=== PATIENT | male | born 1945 | race African-American/Black ===

== ENCOUNTER 2023-01-25 21:56 | Inpatient (IN) | payer MEDICARE, OTHER ==
[~2023-01-25] VITALS: Ht 188 cm; Wt 95.7 kg
[2023-01-25] MEDS ORDERED: MORPHINE SULFATE 4 MG/ML CPJ (NOT FOR IM USE) IV ONE (22:45)
[2023-01-25 23:29] LABS: BASOPHILS % 0.6 % (0.0-2.0); EOSINOPHILS % 2.1 % (0.0-5.0); HEMATOCRIT. 38.8 % (42.0-52.0); HEMOGLOBIN. 13.2 g/dL (14.0-18.0); LYMPHOCYTES % 24.9 % (20.0-50.0); MEAN CORPUSCULAR HEMOGLOBIN 33.4 pg (28.0-32.0); MEAN CORPUSCULAR VOLUME 97.7 fL (80.0-94.0); MEAN PLATELET VOLUME 9.6 fl (7.4-10.4); MONOCYTES % 6.2 % (2.0-8.0); NEUTROPHILS % 66.2 % (40.0-76.0); PLATELET 147 x1000/uL (130-400); RED BLOOD CELL COUNT 3.97 mill/uL (4.7-6.1); RED CELL DISTRIBUTION WIDTH 13.2 % (11.6-14.6)
[2023-01-25 23:32] LABS: CHLORIDE 105 mEq/L (98-107)
[2023-01-25 23:36] LABS: INR 1.1; PROTHROMBIN TIME 11.7 sec (9.6-11.0)
[2023-01-26 01:39] LABS: CLARITY URINE TURBID (CLEAR); COLOR URINE BLOODY (YELLOW); SPECIFIC GRAVITY URINE 1.015 (1.005-1.030)
[2023-01-26 01:40] LABS: KETONES URINE TRACE (NEGATIVE); NITRITE URINE NEGATIVE (NEGATIVE); OCCULT BLOOD URINE 2+ (NEGATIVE); PH URINE 6.5 (4.5-8.0); PROTEIN URINE 4+ (NEGATIVE); UROBILINOGEN URINE 0.2 E.U./dL (0.2-1.0)
[2023-01-26 01:41] LABS: LEUKOCYTE ESTERASE URINE TRACE (NEGATIVE)
[2023-01-26] MEDS ORDERED: MORPHINE SULFATE 4 MG/ML CPJ (NOT FOR IM USE) IV ONE (02:30)
[2023-01-26] MEDS ORDERED: IOHEXOL-300 100 ML BOTTLE ONE (03:37)
[2023-01-26 10:38] VITALS: BP 135/82
[2023-01-26 12:22] VITALS: BP 135/90
[2023-01-26] MEDS ORDERED: ACETAMINOPHEN 650MG/20.3ML UDC GT PRN (15:30)
[2023-01-26] MEDS ORDERED: HYDROCODONE/ACETAMINOPHEN 5/325MG TABLET PO PRN ×2 (15:30)
[2023-01-26] MEDS ORDERED: ALBUTEROL (0.083%) 2.5MG/3ML NEB HHN PRN (15:30)
[2023-01-26] MEDS ORDERED: CLONIDINE 0.1MG TABLET PO PRN (15:30)
[2023-01-26] MEDS ORDERED: NALOXONE HCL 0.4MG/ML VIAL IV PRN (15:30)
[2023-01-26] MEDS ORDERED: DOCUSATE SODIUM 100MG CAPSULE PO PRN (15:30)
[2023-01-26] MEDS ORDERED: ONDANSETRON HCL 4MG/2ML INJ IV PRN (15:30)
[2023-01-26] MEDS ORDERED: CEFTRIAXONE 1GM PREMIX 50 ML IV SCH (15:30)
[2023-01-26] MEDS ORDERED: IPRATROPIUM/ALBUTEROL 0.5-3(2.5)MG/3ML NEB HHN PRN (15:30)
[2023-01-26] MEDS ORDERED: IPRATROPIUM BROMIDE (0.02%) 0.5MG/2.5ML NEB HHN PRN (15:30)
[2023-01-26 16:00] VITALS: BP 130/76
[2023-01-26] MEDS ORDERED: LEVOFLOXACIN 750MG PREMIX 150 ML IV SCH (17:30)
[2023-01-26 18:42] LABS: CHLORIDE 105 mEq/L (98-107)
[2023-01-26 20:00] VITALS: BP 124/72
[2023-01-27] VITALS: BP 139/81
[2023-01-27 04:00] VITALS: BP 136/80
[2023-01-27 07:43] LABS: BASOPHILS % 0.8 % (0.0-2.0); EOSINOPHILS % 2.4 % (0.0-5.0); HEMATOCRIT. 34.5 % (42.0-52.0); HEMOGLOBIN. 11.8 g/dL (14.0-18.0); LYMPHOCYTES % 24.4 % (20.0-50.0); MEAN CORPUSCULAR HEMOGLOBIN 33.3 pg (28.0-32.0); MEAN PLATELET VOLUME 9.7 fl (7.4-10.4); MONOCYTES % 10.2 % (2.0-8.0); NEUTROPHILS % 62.2 % (40.0-76.0); PLATELET 133 x1000/uL (130-400); RED BLOOD CELL COUNT 3.55 mill/uL (4.7-6.1); RED CELL DISTRIBUTION WIDTH 13.1 % (11.6-14.6)
[2023-01-27 08:00] VITALS: BP 116/70
[2023-01-27 08:43] LABS: CHLORIDE 105 mEq/L (98-107)
[2023-01-27 12:00] VITALS: BP 119/54
[2023-01-27] MEDS ORDERED: LEVO-65 MT (12:01)
[2023-01-27 13:51] VITALS: BP 133/90
== END 2023-01-27 15:27 | disposition home or self-care (01) | DRG 696 ==
LOC: ER 21:56 → 6EST 01-26 02:46 → EDBEDREQ 01-26 03:14 → EDBEDREQTM 01-26 03:14 → ENRESERV 01-26 07:48
PROVIDERS: ADMIT Internal Medicine; ATTEND Internal Medicine
DX: R31.9 Hematuria, unspecified (principal); E78.00 Pure hypercholesterolemia, unspecified; I10 Essential (primary) hypertension; E78.5 Hyperlipidemia, unspecified; Z87.19 Personal history of other diseases of the digestive system; Z85.51 Personal history of malignant neoplasm of bladder; Z88.0 Allergy status to penicillin; C67.9 Malignant neoplasm of bladder, unspecified; N28.1 Cyst of kidney, acquired
CPT/HCPCS: 36415; 74177; 80048; 80053; 81003; 85025; 86850; 86900; 99285; J1956; J2270; Q9967; A4315

== ENCOUNTER 2023-03-03 13:45 | Emergency (ER) | payer MEDICARE ==
[~2023-03-03] VITALS: Ht 182.9 cm; Wt 87.0 kg
[~2023-03-03 13:45] MED LIST: LEVO-65 MT
[2023-03-03 15:18] LABS: CLARITY URINE CLEAR (CLEAR); COLOR URINE DARK YELLOW (YELLOW); KETONES URINE NEGATIVE (NEGATIVE); LEUKOCYTE ESTERASE URINE 2+ (NEGATIVE); NITRITE URINE POSITIVE (NEGATIVE); OCCULT BLOOD URINE 3+ (NEGATIVE); PROTEIN URINE 1+ (NEGATIVE); SPECIFIC GRAVITY URINE 1.008 (1.005-1.030)
[2023-03-03] MEDS ORDERED: SULF1TAB48 MT (15:47)
[2023-03-03 16:15] VITALS: BP 148/90
== END 2023-03-03 16:17 | disposition home or self-care (01) ==
LOC: ER 13:56
DX: N39.0 Urinary tract infection, site not specified (principal); E78.00 Pure hypercholesterolemia, unspecified; I10 Essential (primary) hypertension; Z88.0 Allergy status to penicillin
CPT/HCPCS: 81003; 99283